=== PATIENT | female | born 1955 | race Two or more races ===

== ENCOUNTER 2020-05-15 11:41 | Outpatient (RCR) | payer MEDICARE, SELFPAY ==
[2020-05-15] MEDS: COVID-19 VACC, MRNA(PFIZER)/PF 30 MCG/0.3 ML SYRINGE IM (13:45)
[2020-06-05] MEDS: COVID-19 VACC, MRNA(PFIZER)/PF 30 MCG/0.3 ML SYRINGE IM (13:38)
== END 2020-08-14 23:59 ==
LOC: IMMUN 11:41
PROVIDERS: PCP Family Medicine; Referring Provider Family Medicine; Visit Provider Family Medicine
DX: Z23 Encounter for immunization (principal)
CPT/HCPCS: 0001A; 0002A; 91300